=== PATIENT | female | born 1965 | race Caucasian/White ===

== ENCOUNTER 2017-01-27 15:02 | Emergency (ER) | payer BC ==
--- NOTE | ~2017-01-27 | CR173 ---
[facility]. [facility] A Service of [facility] & [facility] RADIOLOGY TEXT RESULTS PATIENT: COURTNEY ESCOBEDO LOCATION: SED : 61 UNIT #: [id number] AGE: [address]: TILA GUNTER SEX: F ORDER DR: [id number] [place] [id number] E MR#: [id number] Acc #: [id number] NAME: COURTNEY ESCOBEDO : 1965 SEX: F STUDY DATE/TIME: 01/27/2017 15:23 UNIT: SED ROOM: STUDY DESCRIPTION: CR Knee 3 Views Rt Attending Physician: Tila Gunter Ordering Physician: Tila Gunter Primary Care Physician: Andry Lowe M.D. MEDICAL IMAGING REPORT This report is preliminary unless electronic signature is present. EXAM Right knee INDICATIONS Pain after jumping into a pool today. The patient jammed her knee on a landing. FINDINGS No acute fracture or subluxation of the right knee is identified. Patient does appear to have suprapatellar effusion. There is some degenerative changes involving the right knee, probably most pronounced within the patellofemoral compartment. I do not see any overlying soft tissue swelling. IMPRESSION No acute fracture or subluxation identified. Patient may have a suprapatellar effusion. No overlying soft tissue swelling is seen. Dictated by... Danelle Whiting M.D. THIS IS AN ELECTRONICALLY VERIFIED REPORT Danelle Whiting M.D. at 01/28/2017 7:21 AM AFF/ea TD: 01/27/2017 22:52 JOB #: [id number] MEDICAL IMAGING REPORT Page 1 of 1
[~2017-01-27 15:02] MED LIST: ALEVE PO; TYLOX 5/500 CAP1 CAP PO
[2017-01-27] MEDS ORDERED: ZOLOFT PO (15:11)
== END 2017-01-27 16:55 | disposition home or self-care (01) ==
LOC: SED 15:02
DX: S80.01XA Contusion of right knee, initial encounter (principal); W16.92XA Jumping or diving into unspecified water causing other injury, initial encounter; Y92.009 Unspecified place in unspecified non-institutional (private) residence as the place of occurrence of the external cause; Z79.899 Other long term (current) drug therapy
CPT/HCPCS: 29505; 73562; 99283